=== PATIENT | male | born 2000 | race Caucasian/White ===

== ENCOUNTER 2022-03-22 10:35 | Emergency (ER) | payer SELFPAY ==
[~2022-03-22] VITALS: Ht 162.6 cm; Wt 77.1 kg
[2022-03-22 10:41] VITALS: BP 109/72
--- NOTE | 2022-03-22 10:45 | NUR ---
21 y/o male biba, homeless, pt presents to ed c/o dizziness that started earlier today. denies n/v/d, sob, cp, fever or chills. pmh: schizophrenia nka
[2022-03-22 11:51] LABS: BASOPHILS % (AUTO) 0.3 % (0.0-2.0); EOSINOPHILS % (AUTO) 0.4 % (0.0-4.0); HEMATOCRIT 41.4 % (36-52); HEMOGLOBIN 14.1 g/dL (12.0-18.0); LYMPHOCYTES # (AUTO) 1.3 K/uL (2.0-11.5); MEAN CORPUSCULAR HEMOGLOBIN 30 pg (27-31); MEAN CORPUSCULAR HGB CONC 34 g/dL (33-37); MEAN CORPUSCULAR VOLUME 87.2 fL (80-94); MONOCYTES # (AUTO) 0.5 K/uL (0.8-1.0); MONOCYTES % (AUTO) 8.8 % (1.7-9.3); NEUTROPHILS # (AUTO) 4.2 K/uL (1.8-7.7); NEUTROPHILS % (AUTO) 69.5 % (42.2-75.2); PLATELET COUNT (AUTO) 243 K/uL (140-450); RED BLOOD CELL COUNT(AUTO) 4.74 MIL/uL (4.20-6.10)
[2022-03-22 12:10] LABS: ALBUMIN 4.2 g/dL (3.4-5.0); ANION GAP 20.8 (8-16); ASPARTATE AMINOTRANSFERASE 40 U/L (15-37); CHLORIDE 94 mmol/L (98-107); GFR ARICAN-AMERICAN 119 mL/min (>90); GLUCOSE 72 mg/dL (74-106); POTASSIUM 3.8 mmol/L (3.5-5.1); SODIUM SERUM 135 mmol/L (136-145); TOTAL BILIRUBIN 2.5 mg/dL (0.0-1.0); UREA NITROGEN, BLOOD 24 mg/dL (7-18)
[2022-03-22] MEDS ORDERED: NACL 0.9% 1,000 ML IV SCH (12:25)
[2022-03-22 15:30] LABS: CKMB RELATIVE INDEX 1.3 (0.0-2.5)
[2022-03-22 18:03] VITALS: BP 109/72
--- NOTE | 2022-03-22 18:03 | NUR ---
Patient discharged with v/s stable. Written and verbal after care instructions given and explained. Patient verbalized understanding. Ambulatory with steady gait. All questions addressed prior to discharge. Advised to follow up with PMD.
== END 2022-03-22 18:03 | disposition home or self-care (01) ==
LOC: MED 10:35 → EDBD 10:35 → MED 18:03
DX: E86.0 Dehydration (principal); Z59.00 Homelessness unspecified; R42 Dizziness and giddiness; Z87.891 Personal history of nicotine dependence
CPT/HCPCS: 36415; 80053; 82550; 82553; 84484; 85025; 99283; G0482